=== PATIENT | female | born 1945 | race Caucasian/White ===

== ENCOUNTER 2017-07-30 14:28 | Outpatient (CLI) | payer OTHER | END 2017-07-30 14:31 | disposition home or self-care (01) | LOC: RAD 501 14:28 | DX: M19.041 Primary osteoarthritis, right hand (principal) ==

== ENCOUNTER 2018-07-12 11:05 | Outpatient (CLI) | payer OTHER | END 2018-07-12 17:00 | disposition home or self-care (01) | LOC: RAD 11:05 → TOM 11:05 | DX: S09.90XA Unspecified injury of head, initial encounter (principal); R07.82 Intercostal pain; S05.91XA Unspecified injury of right eye and orbit, initial encounter; I11.9 Hypertensive heart disease without heart failure; B37.89 Other sites of candidiasis; E55.9 Vitamin D deficiency, unspecified; E03.8 Other specified hypothyroidism; M81.8 Other osteoporosis without current pathological fracture; E66.8 Other obesity; E78.49 Other hyperlipidemia ==